=== PATIENT | female | born 1960 | race African-American/Black ===

== ENCOUNTER 2022-03-10 08:25 | Inpatient (IN) | payer OTHER ==
[2022-03-10 09:07] VITALS: BMI 44.4
[2022-03-10] MEDS ORDERED: MAGNESIUM HYDROX 2400MG/30ML ORAL SUSPENSION 30 ML CUP PO PRN (12:11)
[2022-03-10] MEDS ORDERED: NICOTINE 10 MG CARTRIDGE (INHALER) IH PRN (12:11)
[2022-03-10] MEDS ORDERED: ACETAMINOPHEN 325 MG TABLET (FP) PO PRN (12:11)
[2022-03-10] MEDS ORDERED: guaiFENesin 200 MG/10 ML 10 ML UNIT-DOSE CUPS PO PRN (12:11)
[2022-03-10] MEDS ORDERED: LOPERAMIDE HCL 2 MG CAPSULE PO PRN (12:11)
[2022-03-10] MEDS ORDERED: P-EPHED 60MG/TRIPROLIDI 2.5MG TABLET PO PRN (12:11)
[2022-03-10] MEDS ORDERED: MAG HYDROX/AL HYDROX/SIMETH 30 ML UNIT-DOSE CUP PO PRN (12:11)
[2022-03-10] MEDS ORDERED: MAGNESIUM CITRATE 300 ML BOTTLE PO PRN (12:11)
[2022-03-10] MEDS ORDERED: IBUPROFEN 400 MG TABLET (FP) PO PRN (12:11)
[2022-03-10] MEDS: FUROSEMIDE 20 MG TABLET (FP) PO SCH (13:21)
[2022-03-10 18:19] LABS: HEMOGLOBIN 14.2 GM/dL (10.7-15.3); MCH 34.8 pg (25.7-33.7); MEAN CELL VOLUME 105.6 fl (80-96); MEAN PLT VOLUME 8.6 fl (7.5-11.1); PLATELET COUNT 238 10^3/uL (134-434); RBC 4.08 M/mm3 (3.60-5.2); WHITE BLOOD COUNT 5.2 K/mm3 (4.0-10.0)
[2022-03-10 18:29] LABS: ALBUMIN 2.9 g/dl (3.4-5.0); BLOOD UREA NITROGEN 5.4 mg/dL (7-18); CALCIUM 8.8 mg/dL (8.5-10.1)
[2022-03-10 18:32] LABS: CREATININE 0.7 mg/dL (0.55-1.3)
[2022-03-10 18:34] LABS: BILIRUBIN,TOTAL 0.4 mg/dL (0.2-1); TOT PROT 6.3 g/dl (6.4-8.2)
[2022-03-10 18:37] LABS: SICKLE CELL SCREEN NEGATIVE (NEGATIVE)
[2022-03-10 18:51] LABS: SYPHILIS W/ RPR CONF NON-REACTIVE (NONREACTIVE)
[2022-03-10] MEDS: MELATONIN 5 MG TABLETS PO SCH (21:48)
[2022-03-10] MEDS: THIAMINE HCL 100 MG TABLET (FP) PO SCH (21:48)
[2022-03-11] MEDS: FUROSEMIDE 20 MG TABLET (FP) PO SCH ×2 (07:07→14:09)
[2022-03-11] MEDS: ALBUTEROL SO4 HFA INHALER IH PRN ×2 (07:35→15:47)
[2022-03-11] MEDS: PRENATAL VITAMINS W/ FOLIC ACID TABLET (FP) PO SCH (10:12)
[2022-03-11 10:13] LABS: PH,URINE 8.5 (5.0-8.0); URINE APPEARANCE CLEAR; URINE BILIRUBIN NEGATIVE (NEGATIVE); URINE COLOR YELLOW; URINE GLUCOSE (UA) NEGATIVE (NEGATIVE); URINE KETONE NEGATIVE (NEGATIVE); URINE LEUK ESTERASE NEGATIVE (NEGATIVE); URINE NITRITE NEGATIVE (NEGATIVE); URINE PROTEIN NEGATIVE (NEGATIVE); URINE UROBILINOGEN 0.2 mg/dL (0.2-1.0)
[2022-03-11] MEDS: NICOTINE 14 MG/24 HOURS TOPICAL PATCH TD SCH (10:13)
[2022-03-11] MEDS: LISINOPRIL 5 MG TABLET PO SCH (12:20)
[2022-03-11 17:27] VITALS: RESP 18
[2022-03-11] MEDS ORDERED: cloNIDine HCL 0.1 MG TABLET PO ONE (17:33)
[2022-03-11] MEDS: MELATONIN 5 MG TABLETS PO SCH (21:12)
[2022-03-11] MEDS: THIAMINE HCL 100 MG TABLET (FP) PO SCH (21:12)
[2022-03-12] MEDS: FUROSEMIDE 20 MG TABLET (FP) PO SCH ×2 (06:47→14:08)
[2022-03-12] MEDS: hydrOXYzine PAMOATE 25 MG CAPSULE (FP) PO PRN ×3 (06:48→21:50)
[2022-03-12] MEDS: ALBUTEROL SO4 HFA INHALER IH PRN ×2 (06:48→21:52)
[2022-03-12] MEDS: NICOTINE 14 MG/24 HOURS TOPICAL PATCH TD SCH (09:16)
[2022-03-12] MEDS: PRENATAL VITAMINS W/ FOLIC ACID TABLET (FP) PO SCH (09:16)
[2022-03-12] MEDS: LISINOPRIL 5 MG TABLET PO SCH (09:17)
[2022-03-12] MEDS: MELATONIN 5 MG TABLETS PO SCH (21:50)
[2022-03-12] MEDS: THIAMINE HCL 100 MG TABLET (FP) PO SCH (21:50)
[2022-03-13] MEDS: hydrOXYzine PAMOATE 25 MG CAPSULE (FP) PO PRN (06:06)
[2022-03-13] MEDS: FUROSEMIDE 20 MG TABLET (FP) PO SCH ×2 (06:06→14:48)
[2022-03-13] MEDS: ALBUTEROL SO4 HFA INHALER IH PRN (06:52)
[2022-03-13] MEDS: NICOTINE 14 MG/24 HOURS TOPICAL PATCH TD SCH (10:02)
[2022-03-13] MEDS: PRENATAL VITAMINS W/ FOLIC ACID TABLET (FP) PO SCH (10:03)
[2022-03-13] MEDS: LISINOPRIL 5 MG TABLET PO SCH (10:03)
[2022-03-13] MEDS ORDERED: LISINOPRIL 10 MG TABLET PO ONE ×2 (11:15→11:30)
[2022-03-13] MEDS ORDERED: LISINOPRIL 5 MG TABLET PO ONE (12:27)
[2022-03-13] MEDS: THIAMINE HCL 100 MG TABLET (FP) PO SCH (21:53)
[2022-03-13] MEDS: MELATONIN 5 MG TABLETS PO SCH (21:53)
[2022-03-14] MEDS: FUROSEMIDE 20 MG TABLET (FP) PO SCH (07:34)
[2022-03-14 08:39] VITALS: PULSE 81; TEMP 97.8
[2022-03-14] MEDS: NICOTINE 14 MG/24 HOURS TOPICAL PATCH TD SCH (09:14)
[2022-03-14] MEDS: PRENATAL VITAMINS W/ FOLIC ACID TABLET (FP) PO SCH (09:14)
[2022-03-14] MEDS ORDERED: LISINOPRIL 10 MG TABLET PO SCH (10:00)
[2022-03-14 10:59] VITALS: BP 150/82
== END 2022-03-14 09:55 | disposition home or self-care (01) | DRG 895 ==
LOC: YASAS 08:25 → Y5N 11:56
PROVIDERS: ADMIT Allergy & Immunology; ATTEND Psychiatry & Neurology Pain Medicine
PROC: HZ42ZZZ Group Counseling for Substance Abuse Treatment, Cognitive-Behavioral (ICD-10-PCS; principal; 2022-03-10)
DX: F10.20 Alcohol dependence, uncomplicated (principal); Z68.41 Body mass index [BMI] 40.0-44.9, adult; F12.20 Cannabis dependence, uncomplicated; F17.210 Nicotine dependence, cigarettes, uncomplicated; F25.9 Schizoaffective disorder, unspecified; F31.9 Bipolar disorder, unspecified; I10 Essential (primary) hypertension; F19.24 Other psychoactive substance dependence with psychoactive substance-induced mood disorder; K08.89 Other specified disorders of teeth and supporting structures; N39.498 Other specified urinary incontinence; E66.01 Morbid (severe) obesity due to excess calories; Z86.19 Personal history of other infectious and parasitic diseases; Z59.00 Homelessness unspecified; Z86.79 Personal history of other diseases of the circulatory system; Z87.09 Personal history of other diseases of the respiratory system; Z28.310 Unvaccinated for COVID-19; Z28.21 Immunization not carried out because of patient refusal
CPT/HCPCS: 36415; 71046-TC-FY; 80053; 81003; 85027; 85660; 86780; 86803; 93005; 93010; C9803-CS; U0003; U0005